=== PATIENT | female | born 2000 | race Caucasian/White ===

== ENCOUNTER 2021-01-01 10:48 | Day surgery (SDC) | payer OTHER ==
[~2021-01-01] VITALS: Ht 157.5 cm; Wt 47.2 kg
[2021-01-01] MEDS ORDERED: LIDOCAINE 2% 100 MG/5 ML UJET TP ONE (11:46)
[2021-01-01] MEDS ORDERED: fentaNYL citrate 0.05 MG/ML VIAL ONE (11:46)
[2021-01-01] MEDS ORDERED: diphenhydrAMINE 50 MG/ML VIAL ONE (11:46)
[2021-01-01] MEDS ORDERED: MIDAZOLAM 5 MG/5 ML VIAL ONE (11:46)
[2021-01-01] MEDS ORDERED: MIDAZOLAM 2 MG/2 ML VIAL IVP ONE (12:35)
[2021-01-01] MEDS ORDERED: fentaNYL citrate 0.05 MG/ML VIAL IVP ONE (12:35)
== END 2021-01-01 13:50 | disposition home or self-care (01) ==
LOC: MDS 10:48 → MMU 10:57 → MDS 13:50
PROVIDERS: ATTEND Internal Medicine Gastroenterology
DX: K62.5 Hemorrhage of anus and rectum (principal); K59.00 Constipation, unspecified; Z88.0 Allergy status to penicillin; Z79.899 Other long term (current) drug therapy
CPT/HCPCS: 45378; 81025; J2250; J3010; J1200